=== PATIENT | female | born 1970 | race African-American/Black ===

== ENCOUNTER 2019-03-12 06:48 | Emergency (ER) | payer OTHER ==
[~2019-03-12] VITALS: Ht 165.1 cm; Wt 98.4 kg
[2019-03-12 08:52] LABS: ABSOLUTE NEUTROPHILS 8.7 thou/uL (1.4-8.2); BASOPHILS 0.3 % (0.0-2.0); EOSINOPHILS 0.4 % (0.0-3.0); HEMATOCRIT 38.8 % (37.0-47.0); HEMOGLOBIN 12.8 gm/dL (12.0-15.0); LYMPHOCYTES 8.9 % (24.0-44.0); MCH 26.7 pg (26.0-34.0); MCHC 32.9 g/dL (28.0-37.0); MCV 81.2 fL (80.0-100.0); MONOCYTES 3.4 % (1.0-8.0); PLATELET COUNT 381 thou/uL (150-400); RBC 4.77 mil/uL (4.20-5.00)
[2019-03-12 09:01] LABS: CALCIUM 8.7 mg/dL (8.5-10.1); CREATININE 0.9 mg/dL (0.6-1.0)
[2019-03-12 09:07] LABS: ALBUMIN 3.2 g/dL (3.4-5.0); TOTAL BILIRUBIN 0.4 mg/dL (<0.1-1.0); TOTAL PROTEIN 8.8 g/dL (6.4-8.2)
[2019-03-12 09:18] VITALS: BP 124/71
[2019-03-12] MEDS ORDERED: ATIVAN0.5 MG PO (09:21)
[2019-03-12] MEDS ORDERED: ONDANSETRON ODT8 MG PO (09:21)
== END 2019-03-12 10:27 | disposition home or self-care (01) ==
LOC: ER 06:48
PROVIDERS: Emergency Medicine
DX: H81.10 Benign paroxysmal vertigo, unspecified ear (principal); R11.2 Nausea with vomiting, unspecified; R19.7 Diarrhea, unspecified; Z88.8 Allergy status to other drugs, medicaments and biological substances